=== PATIENT | female | born 1985 | race Caucasian/White ===

== ENCOUNTER 2017-01-14 16:20 | Emergency (ER) | payer MEDICAID ==
[~2017-01-14] VITALS: Wt 80.0 kg
[~2017-01-14 16:20] MED LIST: CYCL-319 PO; IBUP-1542 PO; IBUP800T25 PO; NAPR-260 PO; TRAM50TA2 PO
[2017-01-14] MEDS ORDERED: SOD CHLORIDE 0.9% 1,000 ML IV STA (19:14)
--- NOTE | 2017-01-14 19:46 | RADRPT ---
PROCEDURE: XR Chest PA CLINICAL INDICATION: Abdominal pain TECHNIQUE: An PA radiograph of the chest was submitted. COMPARISON: None. FINDINGS: Cardiovascular: The cardiovascular silhouette appears unremarkable. Lung Esparza: The lung esparza appear clear with no nodule, alveolar infiltrate, or interstitial promi nence evident. Pleural Spaces: There is no pneumothorax or pleural fluid accumulation evident. Osseous Structures: The osseous structures appear intact. Soft Tissues: The soft tissues appear generous. IMPRESSION: Unremarkable PA chest. Physician Luther Date Time Electronically viewed and signed by Bennett Lott Physician on 01/14/2017 19:46 /
[2017-01-14 19:48] LABS: ADD SCAN DIFF NO
[2017-01-14 19:51] LABS: ADD UMIC NO; URINE BILIRUBIN (Dip) NEGATIVE (NEGATIVE); URINE BLOOD (Dip) NEGATIVE (NEGATIVE); URINE COLOR LT. YELLOW (YELLOW); URINE GLUCOSE (Dip) NEGATIVE (NEGATIVE); URINE KETONES (Dip) NEGATIVE (NEGATIVE); URINE LEUKOCYTE ESTERASE (Dip) NEGATIVE (NEGATIVE); URINE NITRITE (Dip) NEGATIVE (NEGATIVE); URINE TOTAL PROTEIN (Dip) NEGATIVE (NEGATIVE); URINE UROBILINOGEN (Dip) 0.2 E.U./dL (0.1-1.0)
[2017-01-14 19:52] LABS: BASOPHIL # 0.1 10^3/ul (0.0-0.1); BASOPHILS % 0.6 % (0.0-2.0); EOSINOPHILS # 0.3 10^3/ul (0.0-0.5); EOSINOPHILS % 2.6 % (0.0-7.0); HEMATOCRIT 39.3 % (37.0-47.0); LYMPHOCYTES # 3.4 10^3/ul (0.8-2.9); LYMPHOCYTES % 33.4 % (15.0-51.0); MEAN CORPUSCULAR HEMOGLOBIN 27.2 pg (29.0-33.0); MEAN CORPUSCULAR HGB CONC 33.1 g/dl (32.0-37.0); MEAN CORPUSCULAR VOLUME 82.2 fl (82.0-101.0); MONOCYTE # 0.7 10^3/ul (0.3-0.9); MONOCYTES % 6.8 % (0.0-11.0); NEUTROPHIL # 5.7 10^3/ul (1.6-7.5); NEUTROPHILS % 56.3 % (39.0-77.0); PLATELET COUNT 320 10^3/UL (140-415); RED BLOOD COUNT 4.78 10^6/ul (4.20-5.40); RED CELL DISTRIBUTION WIDTH 15.6 % (11.5-14.5); WHITE BLOOD COUNT 10.2 10^3/ul (4.8-10.8)
[2017-01-14 20:02] LABS: ALBUMIN 4.2 g/dl (3.3-4.9); CHLORIDE 104 mmol/L (97-110); POTASSIUM 3.9 mmol/L (3.5-5.1); SODIUM 143 mmol/L (135-144)
[2017-01-14 20:04] LABS: BILIRUBIN,INDIRECT 0.1 mg/dl (0-1.1); BILIRUBIN,TOTAL 0.1 mg/dl (0.2-1.3)
[2017-01-14 20:05] LABS: ALANINE AMINOTRANSFERASE 30 IU/L (13-69); ALBUMIN/GLOBULIN RATIO 1.16; ALKALINE PHOSPHATASE 75 IU/L (42-121); ANION GAP 19 (8-16); ASPARTATE AMINO TRANSFERASE 24 IU/L (15-46); BLOOD UREA NITROGEN 15 mg/dl (7-20); CALCIUM 9.1 mg/dl (8.4-10.2); CARBON DIOXIDE 24 mmol/L (21-31); GLUCOSE 102 mg/dl (70-220); TOTAL PROTEIN 7.8 g/dl (6.1-8.1)
--- NOTE | 2017-01-14 20:12 | ERD ---
ER Documentation Chief Complaint Date/Time DATE: 01/14/17 TIME: 20:11 Chief Complaint HEADPAIN AFTER HAVING A SYNCOPAL EPISODE WHILE AT WORK. NO NEURO DEF HPI 31-year-old woman here for evaluation of syncopal episode while walking very fast on her way to work. She describes it as exercise because she was practically running to work. She felt lightheaded and helped herself down to the ground and suspects she lost consciousness for about "5 minutes" she had no loss of bowel or bladder control, no tongue injury or bleeding, no complaints of chest pain or shortness of breath, no palpitations, no fevers or chills, no complaints of abdominal pain or dysuria. Patient had no postictal changes in mental status and feels normal at this time and is without complaints. ROS All systems reviewed and are negative except as per history of present illness. Medications Home Meds Active Scripts Naproxen* (Naprosyn*) 500 Mg Tablet, 500 MG PO BID Y for PAIN AND/OR INFLAMMATION, #30 TAB Prov:URI MORLE PA-C 03/06/16 Cyclobenzaprine Hcl* (Cyclobenzaprine Hcl*) 10 Mg Tablet, 10 MG PO QHS, #15 TAB Prov:URI MOREL PA-C 03/06/16 Tramadol HCl (Tramadol HCl) 50 Mg Tab, 50 MG PO Q4 Y for PAIN, #20 TAB Prov:LIZ IGLESIAS MD 08/16/15 Ibuprofen* (Motrin*) 600 Mg Tab, 600 MG PO Q6, #30 TAB Prov:LIZ IGLESIAS MD 08/16/15 Reported Medications Ibuprofen* (Ibuprofen*) 800 Mg Tab, 800 MG PO Q6H Y for PAIN, TAB 11/02/14 Allergies Allergies: Coded Allergies: No Known Allergy (Unverified , 11/02/14) PMhx/Soc None Medical and Surgical Hx: pt denies Medical Hx History of Surgery: Yes (C SECTION x3) Anesthesia Reaction: No Hx Neurological Disorder: No Hx Respiratory Disorders: No Hx Cardiac Disorders: No Hx Psychiatric Problems: No Hx Miscellaneous Medical Probl: No Hx Alcohol Use: No Hx Substance Use: No Hx Tobacco Use: No Smoking Status: Never smoker FmHx Family History: No diabetes Physical Exam Vitals Vital Signs Date Time Temp Pulse Resp B/P Pulse Ox O2 Delivery O2 Flow Rate FiO2 01/14/17 16:23 98.5 75 20 111/66 98 Physical Exam GENERAL: Well-developed, well-nourished, well-hydrated, in no apparent distress , looks nontoxic in appearance HEENT: Moist mucous membranes, pink conjunctiva, no cervical spine tenderness or step-off deformities, no goiter, no jaundice or icterus, extraocular movements intact without pain. No submandibular induration, and no pharyngeal erythema NEURO: Alert and oriented 3, cranial nerves II through XII intact bilaterally, pupils equal round reactive to light, no focal deficits or facial asymmetry, sensation intact distally Strength 5/5 in upper and lower extremities bilaterally CARDIAC: Regular rate and rhythm, no murmurs rubs or gallops LUNGS: Clear bilaterally no wheezing crackles or stridor ABDOMEN: Soft nontender, no guarding, no rigidity, no rebound, no psoas sign no obturator sign. Normoactive bowel sounds SKIN: Warm and dry to touch, no abrasions, contusions, or hematomas, no lacerations, no ecchymosis, no target lesions, and without ulcers EXTREMITIES: No clubbing cyanosis or edema, calves are bilaterally symmetrical, no Homans sign, no popliteal cord sign. Distal pulses equal and bilateral PSYCH: Normal affect without agitation or irritability Result Diagram: 01/14/17194401/14/171944 Results 24 hrs Laboratory Tests Test 01/14/17 19:05 01/14/17 19:45 Urine Bilirubin NEGATIVE Urine Clarity CLEAR Urine Color LT. YELLOW Urine Glucose NEGATIVE% Urine Hemoglobin NEGATIVE Urine Ketones NEGATIVE Urine Leukocyte Esterase NEGATIVE Urine Nitrite NEGATIVE Urine Specific Burt 1.020 Urine Total Protein NEGATIVE Urine Urobilinogen 0.2 E.U./dL Urine pH 6.0 Alanine Aminotransferase (ALT/SGPT) 30IU/L Albumin 4.2g/dl Albumin/Globulin Ratio 1.16 Alkaline Phosphatase 75IU/L Anion Gap 19 Aspartate Amino Transf (AST/SGOT) 24IU/L Basophils # 0.110^3/ul Basophils % 0.6% Blood Urea Nitrogen 15mg/dl Calcium Level 9.1mg/dl Carbon Dioxide Level 24mmol/L Chloride Level 104mmol/L Creatinine 0.70mg/dl Direct Bilirubin 0.00mg/dl Eosinophils # 0.310^3/ul Eosinophils % 2.6% Globulin 3.60g/dl Glucose Level 102mg/dl Hematocrit 39.3% Hemoglobin 13.0g/dl Indirect Bilirubin 0.1mg/dl Lipase 131U/L Lymphocytes # 3.410^3/ul Lymphocytes % 33.4% Mean Corpuscular Hemoglobin 27.2pg Mean Corpuscular Hemoglobin Concent 33.1g/dl Mean Corpuscular Volume 82.2fl Mean Platelet Volume 10.0fl Monocytes # 0.710^3/ul Monocytes % 6.8% Neutrophils # 5.710^3/ul Neutrophils % 56.3% Nucleated Red Blood Cells # 0.010^3/ul Nucleated Red Blood Cells % 0.0/100WBC Platelet Count 59406^3/UL Potassium Level 3.9mmol/L Red Blood Count 4.7810^6/ul Red Cell Distribution Width 15.6% Sodium Level 143mmol/L Total Bilirubin 0.1mg/dl Total Protein 7.8g/dl Troponin I < 0.010ng/ml White Blood Count 10.210^3/ul Current Medications Medications (Trade) Dose Ordered Sig/Orb Route PRN Reason Start Time Stop Time Status Last Admin Dose Admin Sodium Chloride (NS) 1,000 ml @ 1,000 mls/hr Q1H STAT IV 01/14/17 19:14 01/14/17 20:13 DC 01/14/17 19:32 Procedures/MDM IV line was established patient was placed on bilingual sales consultant rhythm strip revealed a sinus rhythm at about 60 bpm with upright P and T waves. Patient was afebrile. EKG performed, read by me: 62 bpm, normal sinus rhythm, normal axis, no acute ST segment changes, narrow QRS complex, with good R-wave progression in precordial leads. Chest X-ray 1V Interpreted by me: Soft Tissue: No acute abnormalities Bones: No acute abnormalities Mediastinum/Cardiac Silhouette/Lungs: No acute abnormalities I administered 1 L normal saline intravenously for suspected dehydration. CBC was normal, electrolytes revealed an increased BUN/creatinine ratio at 15/ 0.7, liver function tests were normal, troponin was negative. Urine analysis was negative for infection. Differential diagnoses considered, included but not limited to acute coronary syndrome, pulmonary embolism, aortic dissection, abdominal aortic aneurysm, sepsis, stroke, meningitis, encephalitis, pneumonia, appendicitis, cholecystitis , bowel obstruction, pyelonephritis, nephrolithiasis, cystitis, as well as metabolic, hematologic, and electrolyte abnormalities. As well as abscess, cellulitis, fractures, and dislocations. Patient feels much better at this time, and vital signs are normal, symptoms have improved. I did give strict instructions to return to the ED if symptoms continue or worsen, patient will otherwise follow-up with primary care physician. Patient understood instructions and agreed to plan. Departure Diagnosis: Primary Impression: Syncope Syncope type: unspecified Qualified Code: R55 - Syncope, unspecified syncope type Additional Impression: Dehydration Condition: Good Patient Instructions: Syncope, Unk Cause JULIO WILSON MD Jan 14, 2017 20:12
[2017-01-14 20:15] LABS: TROPONIN-I < 0.010 ng/ml (0.00-0.12)
[2017-01-14 20:35] VITALS: BP 94/60; PULSE 71; RESP 20; TEMP 98.2
== END 2017-01-14 20:39 | disposition home or self-care (01) ==
LOC: E/R 16:20
DX: R55 Syncope and collapse (principal); E86.0 Dehydration
CPT/HCPCS: 36415; 71010; 80053; 81003; 83690; 84484; 85025; 93005; J7030; Z7502

== ENCOUNTER 2017-02-01 09:38 | Emergency (ER) | payer MEDICAID ==
[~2017-02-01] VITALS: Wt 80.0 kg
[2017-02-01] MEDS ORDERED: BEN25 PO (10:23)
[2017-02-01] MEDS ORDERED: PRED20TA PO (10:23)
--- NOTE | 2017-02-01 13:33 | ERD ---
ER Documentation Chief Complaint Date/Time DATE: 02/01/17 TIME: 13:32 Chief Complaint cough for 1 wk and rash and itching for 2 wks. no stridor or distress HPI Patient is a 32-year-old female with no medical problems who presents with an allergic reaction. She feels that she has had allergic reaction for the past 1- 1/2 weeks. She tried an allergy medicine but she does not know what it is. She has a dry cough. She has no new foods, lotions, or medicines. She does not currently have a primary doctor. Upon review of old medical records the patient has multiple visits to the ER for various complaints. ROS All systems reviewed and are negative except as per history of present illness. Medications Home Meds Active Scripts Diphenhydramine Hcl* (Benadryl*) 25 Mg Cap, 25 MG PO Q6 Y for ITCHING/RASH, #30 TAB Prov:ARELI BENSON MD 02/01/17 Prednisone* (Prednisone*) 20 Mg Tab, 60 MG PO DAILY for 5 Days, TAB Prov:ARELI BENSON MD 02/01/17 Naproxen* (Naprosyn*) 500 Mg Tablet, 500 MG PO BID Y for PAIN AND/OR INFLAMMATION, #30 TAB Prov:URI MOREL PA-C 03/06/16 Cyclobenzaprine Hcl* (Cyclobenzaprine Hcl*) 10 Mg Tablet, 10 MG PO QHS, #15 TAB Prov:URI MOREL PA-C 03/06/16 Tramadol HCl (Tramadol HCl) 50 Mg Tab, 50 MG PO Q4 Y for PAIN, #20 TAB Prov:LIZ IGLESIAS MD 08/16/15 Ibuprofen* (Motrin*) 600 Mg Tab, 600 MG PO Q6, #30 TAB Prov:LIZ IGLESIAS MD 08/16/15 Reported Medications Ibuprofen* (Ibuprofen*) 800 Mg Tab, 800 MG PO Q6H Y for PAIN, TAB 11/02/14 Allergies Allergies: Coded Allergies: No Known Allergy (Unverified , 11/02/14) PMhx/Soc History of Surgery: Yes (C SECTION x3) Anesthesia Reaction: No Hx Neurological Disorder: No Hx Respiratory Disorders: No Hx Cardiac Disorders: No Hx Psychiatric Problems: No Hx Miscellaneous Medical Probl: No Hx Alcohol Use: No Hx Substance Use: No Hx Tobacco Use: No FmHx Family History: No diabetes Physical Exam Vitals Vital Signs Date Time Temp Pulse Resp B/P Pulse Ox O2 Delivery O2 Flow Rate FiO2 02/01/17 09:40 98.9 95 20 107/69 97 Physical Exam Const: No acute distress Head: Atraumatic Eyes: Normal Conjunctiva ENT: Normal External Ears, Nose and Mouth. Neck: Full range of motion..~ No meningismus. Resp: Clear to auscultation bilaterally Cardio: Regular rate and rhythm, no murmurs Abd: Soft, non tender, non distended. Normal bowel sounds Skin: Mild erythematous rash diffusely without petechia or purpura Back: No midline or flank tenderness Ext: No cyanosis, or edema Neur: Awake and alert Psych: Normal Mood and Affect Procedures/MDM Patient is a 32-year-old female presents with appears to be an acute allergic reaction. It is unclear as to what the factor that started the allergic reaction is. At this point I do not believe the patient has anaphylaxis and does not require admission to the hospital. She has no oropharyngeal swelling or stridor over the neck. She will be given a prescription for prednisone and Benadryl. She can follow-up with her primary doctor the local clinics within 24 -48 hours she does not currently have a primary doctor. She can return sooner for any worsening symptoms. She is well-appearing upon discharge. Departure Diagnosis: Primary Impression: Allergic reaction Encounter type: initial encounter Qualified Code: T78.40XA - Allergic reaction, initial encounter Additional Impression: Cough Condition: Fair Patient Instructions: Allergic Reaction, Other (General) [facility]errals[facility] Usted se kwan hecho un examen mdico de control que le indica que no est en marlon condicin que requiera tratamiento urgente en el Departamento de Emergencia. Un estudio ms profundo y el tratamiento de diop condicin pueden esperar sin ningn riesgo hasta que usted sea atendida/o en el consultorio de diop mdico o marlon cl иван. Es responsabilidad suya arreglar marlon actrachito para el seguimiento del shasta. MANEJO DE CONDICIONES NO URGENTES EN EL FUTURO 1) Si usted tiene un mdico de atencin primaria: Usted debera llamar a diop mdico de atencin primaria antes de venir al departamento de emergencia. Despus de las horas de consultorio, diop doctor o diop asociado/a est disponible por telfono. El mdico o enfermero de florina en el servicio telefnico puede asesorarle por noelle medio para atender el problema, o shasta contrario se puede programar marlon catrachito. 2) Si usted no tiene un mdico de atencin primaria: Llame al mdico o clnica de referencia que aparece abajo meredith las horas de consultorio para hacer marlon catrachito para que le vean. CLINICAS: [place] [id number] [phone] [facility] [phone] [facility] [phone] [place] [address] [phone] [facility] [place] [id number] [phone] [facility] [phone] Additional Instructions: Llame al doctor MAANA y amanda marlon CATRACHITO PARA DENTRO DE 1-2 CORREA.Dgale a la secretaria que nosotros le instruimos hacer esta catrachito.Avise o llame si diop condicin se empeora antes de la catrachito. Regresa aqui si peor o no mejor. ARELI BENSON MD Feb 01, 2017 13:33
== END 2017-02-01 10:30 | disposition home or self-care (01) ==
LOC: FTE 09:38
DX: R05 Cough (principal)
CPT/HCPCS: 99283

== ENCOUNTER 2018-02-28 08:21 | Emergency (ER) | END 2018-02-28 10:39 | disposition home or self-care (01) ==